=== PATIENT | female | born 2000 | race Caucasian/White ===

== ENCOUNTER → 2022-01-17 16:34 | Outpatient (BNVA) | payer MEDICAID, SELFPAY | PROVIDERS: Visit Provider Emergency Medicine | DX: R10.9 Unspecified abdominal pain (principal); N92.0 Excessive and frequent menstruation with regular cycle; R10.30 Lower abdominal pain, unspecified | CPT/HCPCS: 81000; 81025 ==

== ENCOUNTER → 2023-09-05 15:44 | Outpatient (BNVA) | payer MEDICAID, SELFPAY | PROVIDERS: Visit Provider Emergency Medicine | DX: J02.9 Acute pharyngitis, unspecified (principal) | CPT/HCPCS: 87071; 87880 ==

== ENCOUNTER 2023-12-28 22:10 | Emergency (ER) | payer MEDICAID, SELFPAY ==
[2023-12-28 22:13] VITALS: BP 133/82; PULSE 133; RESP 16; TEMP 36.6; O2SAT 98; BMI 20.3
[2023-12-28 22:32] LABS: Basophils # 0.1 10^3/uL (0.0-0.1); Basophils % 0.6 %; Eosinophils # 0.1 10^3/uL (0.0-0.8); Lymphocytes # 2.5 10^3/uL (0.8-4.8); Lymphocytes % 32.4 %; Mean Corpuscular HGB Conc 33.2 g/dL (30-55); Mean Corpuscular Hemoglobin 29.1 pg (27-33); Mean Corpuscular Volume 87.8 fl (85-98); Mean Platelet Volume 10.4 fL (7.4-10.4); Monocytes # 0.6 10^3/uL (0.2-0.9); Neutrophils # 4.52 10^3/uL (1.8-7.7); Neutrophils % 57.7 %; Nucleated Red Blood Cells % 0 %; Platelet Count 311 10^3/cmm (157-399); Red Blood Count 5.01 10^6/uL (3.85-5.65); Red Cell Distribution Width 12.9 % (12.1-15.1); White Blood Count 7.84 10^3/uL (3.29-11.43)
--- NOTE | 2023-12-28 22:36 | ED_ITS ---
HPI - Abdominal Pain 2 General: Chief Complaint: Abdominal Pain Stated Complaint: right abdomen pain Time Seen by Provider: 12/28/23 22:19 History of Present Illness: Patient presents to the ER with right-sided abdominal pain that goes to her back and sometimes around to her left side. Patient states she had this for about the last 4 days but it keeps getting worse. Patient says she is not had any nausea vomiting diarrhea. Patient says it does not matter if she eats or does not eat this pain comes on on its own and nothing makes it worse. Patient says sometimes is pushing on her belly with firm pressure makes it better for a little while. Review of Systems 2 General: Reports: 10 or more systems reviewed and unremarkable except in HPI and below PFSH ED 2 PFSH: Social History Smoking and tobacco/nicotine status: never used tobacco/nicotine Alcohol intake: never Substance/Drug Use: never Female Reproductive History: Spontaneous abortions: No Physical Exam 2 Const: COMMON NORMALS: no acute distress, average body habitus, patient oriented x3, no limitations, healthy appearing, alert and well nourished HENMT: COMMON NORMALS: normocephalic, atraumatic, hearing grossly normal bilaterally, external ears normal, Normal external nose present, moist oral mucous membranes and oropharynx normal HEAD & SCALP: normocephalic and atraumatic NOSE: Normal external nose present EXTERNAL EAR: Yes external ears normal Neck/C-Spine: COMMON NORMALS: no JVD Chest: COMMONS NORMALS: normal inspection of the chest and normal palpation of entire chest wall Resp: COMMON NORMALS: normal respiratory effort, No retractions, No use of accessory muscles and clear to auscultation bilaterally AUSCULTATION: clear to auscultation bilaterally Cardio: COMMON NORMALS: no JVD, regular rate, regular rhythm, S1 normal heart sound present, S2 normal heart sound present, No gallops present (Cardio), No clicks present (Cardio), No murmurs present (Cardio) and No rub (Cardio) R ATE: regular rate RHYTHM: regular rhythm HEART SOUNDS: S1 normal heart sound present and S2 normal heart sound present GI: COMMON NORMALS: Normal to inspection, nondistended, normoactive bowel sounds present, Soft to palpation, No hepatosplenomegaly present, no masses and no bruits; negative for non-tender (Mild abdominal pain epigastric, increasing to the right upper and lower gaby) PALPATION: Yes Soft to palpation and Yes No hepatosplenomegaly present Neuro: COMMON NORMALS: patient oriented x3 SENSORIUM/ORIENTATION: Yes alert Course 2 Vital Signs: Vital signs: Vital Signs Temperature 98 F 12/29/23 01:07 Pulse Rate 80 12/29/23 01:07 Respiratory Rate 16 12/29/23 01:07 Blood Pressure 101/56 12/29/23 01:07 Pulse Oximetry 95 12/29/23 01:07 Oxygen Delivery Me thod Room Air 12/28/23 22:13 MDM - Abdominal Pain Medical Decision Making Patient was evaluated by physical exam and lab work, abdomen pelvis contrasted CT scan lab work included CBC CMP lipase urinalysis hCG all of which was essentially benign. Abdomen pelvis CT with contrast showed s suspected cystic changes otherwise no acute findings. Patient was nontoxic in appearance in no acute distress. Patient will be referred back to her family practice physician for further evaluation testing. Differential Diagnosis Likely abdominal pain; Unlikely acute appendicitis, calculus of kidney, constipation, diverticulitis, endometriosis, gastroenteritis, pancreatitis or small bowel obstruction Medical Records I reviewed the patient's medical records. Lab Data I reviewed the patient's lab results. 12/28/23 22:27 12/28/23 22:27 Labs/Radiology: Radiology Impressions Abdomen/Pelvis CT 12/28/23 22:55 IMPRESSION: Suspected cystitis changes. Correlate with urinalysis. Otherwise, no acute findings. Laboratory Results WBC 7.84 10^3/uL (3.29-11.43) 12/28/23: RBC 5.01 10^6/uL (3.85-5.65) 12/28/23 22: Hgb 14.60 g/dL (11.27-16.99) 12/28/23: Hct 44.0 % (36-47) 12/28/23: MCV 87.8 fl (85-98) 12/28/23 22: MCH 29.1 pg (27-33) 12/28/23: MCHC 33.2 g/dL (30-55) 12/28/23: RDW 12.9 % (12.1-15.1) 12/28/23: Plt Count 311 10^3/cmm (157-399) 12/28/23: MPV 10.4 fL (7.4-10.4) 12/28/23: Neut % (Auto) 57.7 % 12/28/23: Lymph % (Auto) 32.4 % 12/28/23: [place] % (Auto) 8.0 % 12/28/23: Eos % (Auto) 1.0 % 12/28/23: Baso % (Auto) 0.6 % 12/28/23: Neut # (Auto) 4.52 10^3/uL (1.8-7.7) 12/28/23: Lymph # (Auto) 2.5 10^3/uL (0.8-4.8) 12/28/23 [place] # (Auto) 0.6 10^3/uL (0.2-0.9) 12/28/23: Eos # (Auto) 0.1 10^3/uL (0.0-0.8) 12/28/23: Baso # (Auto) 0.1 10^3/uL (0.0-0.1) 12/28/23: Nucleated RBC % (auto) 0 % 12/28/23 Nucleated RBCs # 0.0 /100WBC 12/28/23: Sodium 140 mmol/L (136-145) 12/28/23: Potassium 3.9 mmol/L (3.5-5.1) 12/28/23: Chloride 105 mmol/L (98-107) 12/28/23: Carbon Dioxide 22 mmol/L (22-29) 12/28/23: Anion Gap 16.9 (5-19) 12/28/23: BUN 14 mg/dL (6-20) 12/28/23: Creatinine 0.7 mg/dL (0.5-0.9) 12/28/23: GFR Calculation 104.6 mL/min (90-130) 12/28/23: Glucose 106 mg/dL (65-115) 12/28/23:27 Calculated Osmolality 291 mOsm/kg (285-295) 12/28/23 22: Calcium 9.6 mg/dL (8.5-10.5) 12/28/23 22: Total Bilirubin 0.3 mg/dL (0.15-1.2) 12/28/23 22:27 AST 15 U/L (0-32) 12/28/23 22: ALT 11 U/L (0-33) 12/28/23 22: Alkaline Phosphatase 66 U/L (35-105) 12/28/23 22:27 Total Protein 7.8 g/dL (6.6-8.7) 12/28/23 22: Albumin 4.6 g/dL (3.5-5.2) 12/28/23 22: Globulin 3.2 g/dL (1.3-4.6) 12/28/23 22: Lipase 22 U/L (13-60) 12/28/23 22: HCG, Qual Negative (Negative) 12/28/23 22:36 Urine Color Yellow (Yellow) 12/28/23 22:36 Urine Appearance Clear (CLEAR) 12/28/23 22:36 Urine pH 5 (5-7) 12/28/23 22:36 Ur Specific [place] 1.030 (1.005-1.030) 12/28/23 22:36 Urine Protein Neg (Negative) 12/28/23 22:36 Urine Glucose (UA) Norm (Normal) 12/28/23 22:36 Urine Ketones Negative (Negative) 12/28/23 22:36 Urine Blood 2+ (Negative) H 12/28/23 22:36 Urine Nitrate Negative (Negative) 12/28/23 22:36 Urine Bilirubin Neg (Negative) 12/28/23 22:36 Urine Urobilinogen Neg mg/dL (Negative) 12/28/23 22:36 Ur Leukocyte Esterase Negative (Negative) 12/28/23 22:36 Urine RBC 5-10 /hpf (0-2) H 12/28/23 22:36 Urine WBC None /hpf (0-5) 12/28/23 22:36 Ur Squamous Epith Cells 5-10 /hpf (0-5) H 12/28/23 22:36 Amorphous Sediment Not Reportable 12/28/23 22:36 Urine Bacteria 1+ /hpf (NONE) H 12/28/23 22:36 Urine Mucus 2+ /hpf 12/28/23 22:36 All radiology interpretation(s) finalized by discharge Discharge Plan Discharge Patient Disposition: Home Clinical Impression: Abdominal pain Qualifiers: Abdominal location: unspecified location Qualified Code(s): R10.9 - Unspecified abdominal pain Condition: Stable Prescriptions: No Action amoxicillin 500 mg tablet 500 mg PO BID 10 Days Qty: 20 0RF [id number] [Bromfed DM] 2-30-10 mg/5 mL syrup 5 ml PO Q6H PRN (Reason: cold symptoms) Qty: 118 0RF dexamethasone 2 mg tablet 10 mg PO DAILY 1 Days Qty: 5 0RF Rx Instructions: take all at same time today Discharge Orders: Discharge ED (Routine); Ordered 12/29/23 Ordered By: Wai Maynard Patient Instructions: Abdominal Pain (ED) Activity Restrictions/Additional Instructions: Your lab work and imaging performed in the ER did not show any acute cause of your abdominal pain. Is thought to be more functional in nature. Please follow back up with your primary care physician within the next 7 to 10 days for further evaluation testing as needed. Coding Level of Care Code ED Quality Specialist for Ingrid Rossi
[2023-12-28 22:40] LABS: HCG Qualitative Urine. Negative (Negative)
[2023-12-28 22:44] LABS: Urine Appearance Clear (CLEAR); Urine Color Yellow (Yellow)
[2023-12-28 22:45] LABS: Add Urine Culture? No; Add Urine Microscopic? YES; Bacteria Urine 1+ /hpf; Bilirubin Urine Neg (Negative); Blood Urine 2+ (Negative); Glucose Urine UA Norm (Normal); Ketones Urine Negative (Negative); Leukocyte Esterase Urine Negative (Negative); Mucus Urine 2+ /hpf; Nitrate Urine Negative (Negative); Protein Urine Neg (Negative); Urobilinogen Urine Neg (Negative); pH Urine 5 (5-7)
[2023-12-28 22:48] LABS: Alanine Aminotransferase 11 U/L (0-33); Albumin Level 4.6 g/dL (3.5-5.2); Alkaline Phosphatase 66 U/L (35-105); Aspartate Amino Transferase 15 U/L (0-32); Blood Urea Nitrogen 14 mg/dL (6-20); Calcium 9.6 mg/dL (8.5-10.5); Carbon Dioxide 22 mmol/L (22-29); Chloride 105 mmol/L (98-107); Globulin 3.2 g/dL (1.3-4.6); Glomerular Filtration Rate 104.6 mL/min (90-130); Glucose 106 mg/dL (65-115); Lipase 22 U/L (13-60); Osmolality Calculated 291 mOsm/kg (285-295); Sodium 140 mmol/L (136-145); Total Bilirubin 0.3 mg/dL (0.15-1.2); Total Protein 7.8 g/dL (6.6-8.7)
[2023-12-28 22:55] VITALS: BP 120/90; PULSE 112; RESP 16; O2SAT 97
--- NOTE | 2023-12-28 22:55 | CTR_ITS ---
PROCEDURE INFORMATION: Exam: CT Abdomen And Pelvis Without Contrast Exam date and time: 12/28/2023 11:04 PM Age: 23 years old Clinical indication: Abdominal pain; Localized; Right; Additional info: Ruq/flank pain, n/v, hematuria TECHNIQUE: Imaging protocol: Computed tomography of the abdomen and pelvis without contrast. Radiation optimization: All CT scans at this facility use at least one of these dose optimization techniques: automated exposure control; mA and/or kV adjustment per patient size (includes targeted exams where dose is matched to clinical indication); or iterative reconstruction. COMPARISON: No relevant prior studies available. RADIATION DOSE METRICS: Total DLP (mGy-cm): 355.99 FINDINGS: Liver: Normal. No mass. Gallbladder and bile ducts: Normal. No calcified stones. No ductal dilation. Pancreas: Normal. No ductal dilation. Spleen: Normal. No splenomegaly. Adrenal glands: Normal. No mass. Kidneys and ureters: Normal. No hydronephrosis. Stomach and bowel: Stool in the proximal colon may reflect constipation. No obstruction. No mucosal thickening. Appendix: The appendix is normal. Intraperitoneal space: No evidence of free air. Vasculature: Normal for age. No abdominal aortic aneurysm. Lymph nodes: Unremarkable. No enlarged lymph nodes. Urinary bladder: Bladder appears thickened with incomplete distension. Reproductive: Unremarkable as visualized. Bones/joints: No acute fracture. Soft tissues: Unremarkable. CT/CT abdomen pelvis con [id number] IMPRESSION: Suspected cystitis changes. Correlate with urinalysis. Otherwise, no acute findings.
[2023-12-28 23:04] LABS: Anion Gap 16.9 (5-19); Potassium 3.9 mmol/L (3.5-5.1)
[2023-12-29 00:50] VITALS: BP 101/56; PULSE 80; RESP 16; O2SAT 95
[2023-12-29 01:07] VITALS: BP 101/56; PULSE 80; RESP 16; TEMP 36.6; O2SAT 95
== END 2023-12-29 01:08 | disposition home or self-care (01) ==
PROVIDERS: Emergency Provider Emergency Medicine
DX: R10.9 Unspecified abdominal pain (principal)
CPT/HCPCS: 74176; 80053; 81001; 81025; 83690; 85025; 99284